=== PATIENT | female | born 2000 | race Caucasian/White ===

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

== ENCOUNTER 2020-08-27 11:23 | Emergency (ER) | payer OTHER ==
[2020-08-27] MEDS ORDERED: Ketorolac 30 MG/ML SDV IVPUSH ONE (11:38)
[2020-08-27] MEDS ORDERED: Ondansetron 4 MG/2 ML SDV IVPUSH ONE (11:38)
[2020-08-27] MEDS ORDERED: Sodium Chloride 0.9% 1,000 ML IV ONE ×3 (11:38→14:31)
[2020-08-27] MEDS ORDERED: Morphine 4 MG/ML Syringe IVPUSH ONE (11:40)
[2020-08-27 12:17] LABS: BLOOD UREA NITROGEN,BUN 2 mg/dL (7.0-18.0); CHLORIDE,CL 100 mmol/L (98-107); GLUCOSE RANDOM 131 mg/dL (74-106); LIPASE 1398 U/L (73-393); POTASSIUM,K 3.6 mmol/L (3.5-5.1); SODIUM,NA 138 mmol/L (136-145)
--- NOTE | 2020-08-27 13:05 | US ---
INDICATION: Right upper quadrant pain with elevated bilirubin and LFTs. TECHNIQUE: Ultrasound abdomen limited. Sonographic images of the right upper quadrant were obtained using heath-scale and color Doppler images. COMPARISON: None FINDINGS: Liver: Hepatomegaly at 20.5 centimeters with diffuse fatty infiltration. No masses. No intrahepatic biliary dilatation. Hepatopetal flow. Trace fluid adjacent to the liver. Gallbladder: Solitary gallstone normal wall thickness. No pericholecystic fluid. Common bile duct: 4.0 mm. Pancreas: Suboptimally visualized due to adjacent bowel gas. Right kidney: 10.2 cm. Normal echotexture and cortex. No masses, stones, or hydronephrosis. Vasculature: Proximal abdominal aorta and IVC are normal. IMPRESSION: Solitary gallstone in an otherwise normal appearing gallbladder. Normal common bile duct. Hepatomegaly at 20.5 centimeters with diffuse fatty infiltration. Trace fluid adjacent to the liver. Dictated by Surya Edmonds MD @ Aug 27 2020 1:04PM Signed by Dr. Surya Edmonds @ Aug 27 2020 1:04PM
--- NOTE | 2020-08-27 13:27 | CT ---
INDICATION: Right upper and right lower quadrant pain with elevated bilirubin TECHNIQUE: CT abdomen and pelvis acquired with IV contrast. 100 cc Isovue 370. COMPARISON: None FINDINGS: Lower chest: Unremarkable. Liver: Significant hepatic steatosis. Spleen: Mild splenomegaly 13.0 centimeters. Pancreas: Extensive peripancreatic fat stranding and fluid extending into the right side of the retroperitoneum and pelvis. Findings consistent with pancreatitis. Gallbladder and bile ducts: Unremarkable. Kidneys: Unremarkable. Adrenal glands: Unremarkable. GI tract: Unremarkable. Appendix is normal. Vascular structures: Unremarkable. Lymph nodes: Unremarkable. Miscellaneous: Unremarkable. No free air or significant free fluid. Pelvic Organs: Unremarkable. Bones: Unremarkable for age. IMPRESSION: Extensive peripancreatic fat stranding and fluid extending to the right-sided retroperitoneum and pelvis. Findings consistent with pancreatitis. Correlate with abnormal amylase and lipase. Significant hepatic steatosis. Mild splenomegaly at 13.0 centimeters. Please note that all CT scans at this facility use dose modulation, iterative reconstruction, and/or weight-based dosing when appropriate to reduce radiation dose to as low as reasonably achievable. Dictated by Surya Edmonds MD @ Aug 27 2020 1:14PM Signed by Dr. Surya Edmonds @ Aug 27 2020 1:25PM
--- NOTE | 2020-08-27 14:13 | EDM.PDOC ---
ED HPI GENERAL MEDICAL PROBLEM - General Chief Complaint: Abdominal Pain Stated Complaint: clininc referal Time Seen by Provider: 08/27/20 11:25 Source of Information: Reports: Patient History Limitations: Reports: No Limitations - History of Present Illness INITIAL COMMENTS - FREE TEXT/NARRATIVE: HISTORY AND PHYSICAL: History of present illness: Patient is a 20-year-old female who presents to the ED today with concern of right upper quadrant pain and nausea that has been ongoing for 2 days. Patient states that she has had a decrease in appetite and her "stomach feels like fire "if she tries to eat. Patient states that she initially went to the clinic and was told to come here after her "liver functions "were elevated. Patient denies any health history or any abdominal surgeries. Patient states that she does use alcohol socially but does not drink habitually. Patient states that she may have a "few drinks "on the weekends. Patient states her last menstrual cycle was 2 weeks ago. Patient states that she did have LASEK eye surgery a few weeks ago and does have some residual redness of her eyes. Patient denies fever, chills, chest pain, shortness of breath, or cough. Denies headache, neck stiff ness, change in vision, syncope, or near syncope. Denies vomiting, diarrhea, constipation, or dysuria. Has not noted any blood in urine or stool. Review of systems: As per history of present illness and below otherwise all systems reviewed and negative. Past medical history: As per history of present illness and as reviewed below otherwise noncontributor y. Surgical history: As per history of present illness and as reviewed below otherwise noncontributory. Social history: See social history for further information Family history: As per history of present illness and as reviewed below otherwise noncontributory. Physical exam: General: Patient is alert, oriented, and in no acute distress. Patient laying comfortably on exam table, tired appearing, tearful on exam. Vitally stable and reviewed by me. HEENT: Atraumatic, normocephalic, pupils equal and reactive bilaterally, negative for conjunctival pallor or scleral icterus, mild scleral injection of the right eye, mucous membranes moist, TMs normal bilaterally, throat clear, neck supple, nontender, trachea midline. No drooling or trismus noted. No meningeal signs. No hot potato voice noted. Lungs: Clear to auscultation, breath sounds equal bilaterally, chest nontender. Heart: S1S2, regular rate and rhythm without overt murmur Abdomen: Soft, nondistended, moderate-severe RUQ and RLQ abdominal pain. Negative for masses or hepatosplenomegaly. Negative for costovertebral tenderness. Pelvis: Stable nontender. Genitourinary: Deferred. Rectal: Deferred. Skin: Intact, warm, dry. No lesions or rashes noted. Extremities: Atraumatic, negative for cords or calf pain. Neurovascular unremarkable. Neuro: Awake, alert, oriented. Cranial nerves II through XII unremarkable. Cerebellum unremarkable. Motor and sensory unremarkable throughout. Exam nonfocal. Notes: On initial exam, patient is vitally stable, tired appearing, otherwise non toxic appearing. She does have significant RUQ/RLQ abdominal pain. I did receive a call from the clinic provider, Dr. Jack, who had done lab work and was concerned for obstructing stone. Dr. Jack had consulted surgery who recommended transfer for ERCP consideration and GI specialist availability. We will repeat lab work as we do not have the lab work from the clinic available, as well as perform an abdominal pelvic CT scan and right upper quadrant ultrasound. CBC mild derangements unremarkable. CMP shows an elevated bilirubin at 7.9, elevated AST of 159, ALT 77, alk phos of 224. Lipase was elevated at 1398. hCG is negative. RUQ US shows a solitary gallstone in an otherwise normal appearing gallbladder. Normal common bile duct. Hepatomegaly at 20.5 cm with diffuse fatty infiltration. Trace fluid adjacent to the liver. Abd/Pelvic CT w cont shows extensive peripancreatic fat stranding and fluid extending to the right sided retroperitoneum and pelvis. Findings consistent with pancreatitis. Significant hepatic steatosis. Mild splenomegaly at 13 cm. Upon reevaluation of patient, she is more comfortable following therapeutics given today in the ED. [facility] [place] is unable to perform ERCP I did call and speak to DELL [place] for consult for possible ERCP consideration and is agreeable to seeing/evaluating patient for possible ERCP consideration. I spoke to Dr. Aldana, hospitalist, and thoroughly discussed patient's case. He is accepting of transfer. He would like patient to receive a total of 3-4L of NS enroute to [facility]. EMS arranged. Voices understanding and is agreeable to plan of care. Denies any further questions or concerns at this time. Diagnostics: CBC, CMP, UA, lipase, urine hCG, right upper quadrant ultrasound, abdominal pelvic CT with contrast, COVID-19 Therapeutics: NS (2L bolus, then 1L rate 250mls/hr requested by Dr Aldana to be given during EMS transfer), Morphine, Toradol Impression: Acute abdominal pain, likely secondary to choledocholithiasis Acute pancreatitis Plan: Transfer to Dr. Aldana, hospitalist, at [facility] via EMS Definitive disposition and diagnosis as appropriate pending reevaluation and review of above. Right Upper Abdomen Pain Score (Numeric/FACES): 9 - Related Data Allergies Allergy/AdvReac Type Severity Reaction Status Date / Time No Known Allergies Allergy Verified 08/27/20 11:34 Home Meds: Home Meds Sertraline [Zoloft] 25 mg PO DAILY 08/27/20 [History] Past Medical History - Past Health History Medical/Surgical History: Denies Medical/Surgical History HEENT History: Reports: None Cardiovascular History: Reports: None Respiratory History: Reports: None Gastrointestinal History: Reports: None Genitourinary History: Reports: None PM HEAD COOK History: Reports: None Musculoskeletal History: Reports: None Neurological History: Reports: None Psychiatric History: Reports: None Endocrine/Metabolic History: Reports: None Hematologic History: Reports: None Dermatologic History: Reports: None - Infectious Disease History Infectious Disease History: Reports: None - Past Surgical History Female Surgical History: Reports: None Social & Family History - Family History Family Medical History: No Pertinent Family History - Tobacco Use Tobacco Use Status *Q: Never Tobacco User - Caffeine Use Caffeine Use: Reports: None - Recreational Drug Use Recreational Drug Use: No ED ROS GENERAL - Review of Systems Review Of Systems: Comprehensive ROS is negative, except as noted in HPI. ED EXAM, GENERAL - Physical Exam Exam: See Below (see dictation) Course - Vital Signs Last Recorded V/S: Last Vital Signs Temp 98.3 F 08/27/20 11:35 Pulse 84 08/27/20 14:37 Resp 16 08/27/20 14:37 BP 128/107 H 08/27/20 14:37 Pulse Ox 97 08/27/20 14:37 - Orders/Labs/Meds Orders: Active Orders 24 hr Category Date Time Status COVID-19/FLU A+B [MOLEC] Stat Lab 08/27/20 11:39 Ordered CULTURE URINE [RM] Stat Lab 08/27/20 11:37 Received Sodium Chloride 0.9% [Normal Saline] 1,000 ml Med 08/27/20 14:30 Active IV STAT Sodium Chloride 0.9% [Normal Saline] 1,000 ml Med 08/27/20 14:31 Active IV STAT Medication Orders Sodium Chloride (Normal Saline) 1,000 mls @ 250 mls/hr IV STAT ONE Stop: 08/27/20 18:29 Last Admin: 08/27/20 14:48 Dose: 999 mls/hr Documented by: ADRIANA Sodium Chloride (Normal Saline) 1,000 mls @ 250 mls/hr IV STAT ONE Stop: 08/27/20 18:30 Last Admin: 08/27/20 14:53 Dose: 250 mls/hr Documented by: ADRIANA Labs: Laboratory Tests 08/27/20 08/27/20 08/27/20 Range/Units 11:37 11:45 11:45 WBC 8.93 (4.0-11.0) K/uL RBC 3.24 L (4.30-5.90) M/uL Hgb 13.1 (12.0-16.0) g/dL Hct 38.6 (36.0-46.0) % MCV 119.1 H (80.0-98.0) fL MCH 40.4 H (27.0-32.0) pg MCHC 33.9 (31.0-37.0) g/dL RDW Std Deviation 75.8 H (28.0-62.0) fl RDW Coeff of Jolanta 17 H (11.0-15.0) % Plt Count 360 (150-400) K/uL MPV 10.00 (7.40-12.00) fL Neut % (Auto) 86.9 H (48.0-80.0) % Lymph % (Auto) 9.1 L (16.0-40.0) % Cobb % (Auto) 3.4 (0.0-15.0) % Eos % (Auto) 0.4 (0.0-7.0) % Baso % (Auto) 0.2 (0.0-1.5) % Neut # (Auto) 7.8 H (1.4-5.7) K/uL Lymph # (Auto) 0.8 (0.6-2.4) K/uL Cobb # (Auto) 0.3 (0.0-0.8) K/uL Eos # (Auto) 0.0 (0.0-0.7) K/uL Baso # (Auto) 0.0 (0.0-0.1) K/uL Nucleated RBC % 0.0 /100WBC Nucleated RBCs # 0 K/uL Sodium 138 (136-145) mmol/L Potassium 3.6 (3.5-5.1) mmol/L Chloride 100 (98-107) mmol/L Carbon Dioxide 27.0 (21.0-32.0) mmol/L BUN 2 L (7.0-18.0) mg/dL Creatinine 0.7 (0.6-1.0) mg/dL Est Cr Clr Drug Dosing 118.01 mL/min Estimated GFR (MDRD) > 60.0 ml/min Glucose 131 H (74-106) mg/dL Calcium 9.1 (8.5-10.1) mg/dL Total Bilirubin 7.9 H (0.2-1.0) mg/dL AST 159 H (15-37) IU/L ALT 77 H (14-63) IU/L Alkaline Phosphatase 224 H (46-116) U/L Total Protein 6.8 (6.4-8.2) g/dL Albumin 3.2 L (3.4-5.0) g/dL Globulin 3.6 (2.6-4.0) g/dL Albumin/Globulin Ratio 0.9 (0.9-1.6) Lipase 1398 H (73-393) U/L HCG, Qual (NEG) Urine Color ORANGE Urine Appearance CLEAR Urine pH 6.5 (5.0-8.0) Ur Specific [place] 1.010 (1.001-1.035) Urine Protein NEGATIVE (NEGATIVE) mg/dL Urine Glucose (UA) NEGATIVE (NEGATIVE) mg/dL Urine Ketones NEGATIVE (NEGATIVE) mg/dL Urine Occult Blood NEGATIVE (NEGATIVE) Urine Nitrite POSITIVE H (NEGATIVE) Urine Bilirubin LARGE H (NEGATIVE) Urine Ictotest POSITIVE Urine Urobilinogen 2.0 H (<2.0) EU/dL Ur Leukocyte Esterase NEGATIVE (NEGATIVE) Urine RBC 0-1 (0-2/HPF) Urine WBC 2-5 (0-5/HPF) Ur Epithelial Cells MANY (NONE-FEW) Urine Bacteria 2+ H (NEGATIVE) 08/27/20 Range/Units 11:45 WBC (4.0-11.0) K/uL RBC (4.30-5.90) M/uL Hgb (12.0-16.0) g/dL Hct (36.0-46.0) % MCV (80.0-98.0) fL MCH (27.0-32.0) pg MCHC (31.0-37.0) g/dL RDW Std Deviation (28.0-62.0) fl RDW Coeff of Jolanta (11.0-15.0) % Plt Count (150-400) K/uL MPV (7.40-12.00) fL Neut % (Auto) (48.0-80.0) % Lymph % (Auto) (16.0-40.0) % Cobb % (Auto) (0.0-15.0) % Eos % (Auto) (0.0-7.0) % Baso % (Auto) (0.0-1.5) % Neut # (Auto) (1.4-5.7) K/uL Lymph # (Auto) (0.6-2.4) K/uL Cobb # (Auto) (0.0-0.8) K/uL Eos # (Auto) (0.0-0.7) K/uL Baso # (Auto) (0.0-0.1) K/uL Nucleated RBC % /100WBC Nucleated RBCs # K/uL Sodium (136-145) mmol/L Potassium (3.5-5.1) mmol/L Chloride (98-107) mmol/L Carbon Dioxide (21.0-32.0) mmol/L BUN (7.0-18.0) mg/dL Creatinine (0.6-1.0) mg/dL Est Cr Clr Drug Dosing mL/min Estimated GFR (MDRD) ml/min Glucose (74-106) mg/dL Calcium (8.5-10.1) mg/dL Total Bilirubin (0.2-1.0) mg/dL AST (15-37) IU/L ALT (14-63) IU/L Alkaline Phosphatase (46-116) U/L Total Protein (6.4-8.2) g/dL Albumin (3.4-5.0) g/dL Globulin (2.6-4.0) g/dL Albumin/Globulin Ratio (0.9-1.6) Lipase (73-393) U/L HCG, Qual NEGATIVE (NEG) Urine Color Urine Appearance Urine pH (5.0-8.0) Ur Specific [place] (1.001-1.035) Urine Protein (NEGATIVE) mg/dL Urine Glucose (UA) (NEGATIVE) mg/dL Urine Ketones (NEGATIVE) mg/dL Urine Occult Blood (NEGATIVE) Urine Nitrite (NEGATIVE) Urine Bilirubin (NEGATIVE) Urine Ictotest Urine Urobilinogen (<2.0) EU/dL Ur Leukocyte Esterase (NEGATIVE) Urine RBC (0-2/HPF) Urine WBC (0-5/HPF) Ur Epithelial Cells (NONE-FEW) Urine Bacteria (NEGATIVE) Meds: Medications Generic Name Dose Route Start Last Admin Trade Name Freq PRN Reason Stop Dose Admin Sodium Chloride 1,000 mls @ 250 mls/hr 08/27/20 14:30 08/27/20 14:48 Normal Saline IV 08/27/20 18:29 999 mls/hr STAT ONE Administration Sodium Chloride 1,000 mls @ 250 mls/hr 08/27/20 14:31 08/27/20 14:53 Normal Saline IV 08/27/20 18:30 250 mls/hr STAT ONE Administration Discontinued Medications Generic Name Dose Route Start Last Admin Trade Name Freq PRN Reason Stop Dose Admin Sodium Chloride 1,000 mls @ 999 mls/hr 08/27/20 11:38 08/27/20 11:59 Normal Saline IV 08/27/20 12:38 999 mls/hr BOLUS ONE Administration Iopamidol 100 ml 08/27/20 15:14 08/27/20 15:15 Iopamidol 755 Mg/Ml 500 Ml Multipack Bottle IVPUSH 08/27/20 15:15 100 ml ONETIME STA Administration Ketorolac Tromethamine 30 mg 08/27/20 11:38 08/27/20 11:58 Ketorolac 30 Mg/Ml Sdv IVPUSH 08/27/20 11:39 30 mg ONETIME ONE Administration Morphine Sulfate 4 mg 08/27/20 11:40 08/27/20 11:59 Morphine 4 Mg/Ml Syringe IVPUSH 08/27/20 11:41 4 mg ONETIME ONE Administration Morphine Sulfate 2 mg 08/27/20 14:31 08/27/20 14:50 Morphine 2 Mg/Ml Syringe IVPUSH 08/27/20 14:32 2 mg ONETIME ONE Administration Ondansetron HCl 4 mg 08/27/20 11:38 08/27/20 11:58 Ondansetron 4 Mg/2 Ml Sdv IVPUSH 08/27/20 11:39 4 mg ONETIME ONE Administration Departure - Departure Time of Disposition: 14:54 Disposition: DC/[facility] to [facility] 02 Clinical Impression: Acute abdominal pain, Choledocholithiasis Acute pancreatitis Qualifiers: Pancreatitis type: biliary Acute pancreatitis complication: unspecified Qualified Code(s): K85.10 - Biliary acute pancreatitis without necrosis or infection - Discharge Information Referrals: Lourdes Jack DO [Primary Care Provider] - Forms: ED Department Discharge Sepsis Event Note (ED) - Evaluation Sepsis Screening Result: No Definite Risk - Focused Exam Vital Signs: Vital Signs Temp Pulse Resp BP Pulse Ox 08/27/20 14:37 84 16 128/107 H 97 08/27/20 13:08 80 18 153/63 H 97 08/27/20 11:35 98.3 F 112 H 20 147/97 H 97 - My Orders Last 24 Hours: My Active Orders 08/27/20 11:37 CULTURE URINE [RM] Stat 08/27/20 11:39 COVID-19/FLU A+B [MOLEC] Stat 08/27/20 14:30 Sodium Chloride 0.9% [Normal Saline] 1,000 ml IV STAT 08/27/20 14:31 Sodium Chloride 0.9% [Normal Saline] 1,000 ml IV STAT - Assessment/Plan Last 24 Hours: My Active Orders 08/27/20 11:37 CULTURE URINE [RM] Stat 08/27/20 11:39 COVID-19/FLU A+B [MOLEC] Stat 08/27/20 14:30 Sodium Chloride 0.9% [Normal Saline] 1,000 ml IV STAT 08/27/20 14:31 Sodium Chloride 0.9% [Normal Saline] 1,000 ml IV STAT
[2020-08-27] MEDS ORDERED: Morphine 2 MG/ML SYRINGE IVPUSH ONE (14:31)
[2020-08-27] MEDS ORDERED: Iopamidol 755 MG/ML 500 ML Multipack Bottle IVPUSH STA (15:14)
[2020-08-27 15:32] VITALS: BP 128/107; PULSE 84
== END 2020-08-27 15:31 ==
LOC: MW.ED 11:23
DX: K85.10 Biliary acute pancreatitis without necrosis or infection (principal); K80.50 Calculus of bile duct without cholangitis or cholecystitis without obstruction
CPT/HCPCS: 36415; 74177; 76705; 80053; 81001; 83690; 84703; 85025; 87086; 96374; 96375; 96376; 99285; J1885; J2270; J2405; J7030; Q9967; 99284

== ENCOUNTER 2021-12-27 12:13 | Emergency (ER) | payer OTHER ==
[2021-12-27] MEDS ORDERED: Sodium Chloride 0.9% 2.5 ML Syringe FLUSH PRN (12:25)
[2021-12-27] MEDS ORDERED: Sodium Chloride 0.9% 1,000 ML IV ONE (12:25)
[2021-12-27] MEDS ORDERED: Sodium Chloride 0.9% 10 ML Syringe FLUSH PRN (12:25)
[2021-12-27] MEDS ORDERED: Morphine 4 MG/ML VIAL IVPUSH ONE (13:30)
[2021-12-27] MEDS ORDERED: Ondansetron 4 MG/2 ML SDV IVPUSH ONE (13:30)
[2021-12-27 14:17] LABS: CARBON DIOXIDE,CO2 29.1 mmol/L (21.0-32.0); POTASSIUM,K 4.1 mmol/L (3.5-5.1)
[2021-12-27] MEDS ORDERED: cefTRIAXone 1 GM in Sodium Chloride 0.9% 50 ML IV ONE (14:37)
[2021-12-27 17:20] VITALS: BP 139/93; PULSE 88
== END 2021-12-27 16:10 | disposition home or self-care (01) ==
LOC: MW.ED 12:13
DX: K52.9 Noninfective gastroenteritis and colitis, unspecified (principal); N30.00 Acute cystitis without hematuria; Z20.822 Contact with and (suspected) exposure to COVID-19
CPT/HCPCS: 36415; 80053; 80307; 81001; 81025; 83690; 85025; 87086; 87088; 87186; 87635; 96361; 96365; 96375; 99284; J0696; J2270; J2405; J3490; J7030; U0002

== ENCOUNTER 2022-11-14 16:08 | Emergency (ER) | payer SELFPAY ==
[2022-11-14 16:57] LABS: BASOPHILS PERCENT AUTO 0.2 % (0.0-1.5); EOSINOPHILS ABSOLUTE AUTO 0.2 K/uL (0.0-0.7); EOSINOPHILS PERCENT AUTO 2.8 % (0.0-7.0); HEMATOCRIT 40.2 % (36.0-46.0); HEMOGLOBIN 14.1 g/dL (12.0-16.0); LYMPHOCYTES PERCENT AUTO 24.8 % (16.0-40.0); MEAN CORPUSCULAR HEMOGLOBIN 29.6 pg (27.0-32.0); MEAN CORPUSCULAR HGB CONC 35.1 g/dL (31.0-37.0); MEAN CORPUSCULAR VOLUME 84.3 fL (80.0-98.0); MONOCYTES ABSOLUTE AUTO 0.4 K/uL (0.0-0.8); MONOCYTES PERCENT AUTO 5.1 % (0.0-15.0); NEUTROPHILS ABSOLUTE AUTO 5.5 K/uL (1.4-5.7); NEUTROPHILS PERCENT AUTO 67.1 % (48.0-80.0); PLATELET COUNT,PLT 214 K/uL (150-400); RED BLOOD CELL COUNT 4.77 M/uL (4.30-5.90); WHITE BLOOD CELL COUNT,WBC 8.16 K/uL (4.0-11.0)
[2022-11-14 17:43] LABS: ALBUMIN 3.5 g/dL (3.4-5.0); BILIRUBIN TOTAL 0.3 mg/dL (0.2-1.0); CALCIUM 8.6 mg/dL (8.5-10.1); CARBON DIOXIDE,CO2 23.4 mmol/L (21.0-32.0); CREATININE 0.6 mg/dL (0.6-1.0); EST CRCL DRUG DOSING (CG) 130.1 mL/min; POTASSIUM,K 3.4 mmol/L (3.5-5.1); PROTEIN TOTAL,TP 7.1 g/dL (6.4-8.2)
[2022-11-14] MEDS ORDERED: Ondansetron 4 MG Tab.DIS PO ONE (18:27)
[2022-11-14 18:52] LABS: BILIRUBIN,URINE NEGATIVE (NEGATIVE); COLOR,URINE YELLOW; GLUCOSE,URINE NEGATIVE (NEGATIVE); KETONES,URINE TRACE mg/dL (NEGATIVE); LEUKOCYTE ESTERASE,URINE NEGATIVE (NEGATIVE); NITRITE,URINE NEGATIVE (NEGATIVE); OCCULT BLOOD,URINE LARGE (NEGATIVE); PH,URINE 6.5 (5.0-8.0); PROTEIN,URINE NEGATIVE (NEGATIVE); UROBILINOGEN,URINE 0.2 EU/dL (<2.0)
[2022-11-14 19:22] LABS: APPEARANCE,URINE HAZY
[2022-11-14 19:40] LABS: BACTERIA,URINE RARE (NEGATIVE); EPITHELIAL CELLS,URINE FEW (NONE-FEW); WBC,URINE 0-2 (0-5/HPF)
[2022-11-14 19:52] VITALS: BP 123/79; PULSE 92
== END 2022-11-14 19:50 | disposition home or self-care (01) ==
LOC: MW.ED 16:08
DX: O20.0 Threatened abortion (principal); Z3A.09 9 weeks gestation of pregnancy
CPT/HCPCS: 36415; 76815; 80053; 81001; 84702; 85025; 86900; 86901; 99284; A9270; 99283

== ENCOUNTER 2022-12-18 19:38 | Emergency (ER) | payer SELFPAY ==
[2022-12-18] MEDS ORDERED: Sodium Chloride 0.9% 1,000 ML IV STA ×2 (20:07→21:11)
[2022-12-18] MEDS ORDERED: Sodium Chloride 0.9% 10 ML Syringe FLUSH PRN (20:07)
[2022-12-18] MEDS ORDERED: Sodium Chloride 0.9% 2.5 ML Syringe FLUSH PRN (20:07)
[2022-12-18 20:20] LABS: BASOPHILS PERCENT AUTO 0.5 % (0.0-1.5); EOSINOPHILS PERCENT AUTO 0.4 % (0.0-7.0); HEMATOCRIT 42.7 % (36.0-46.0); LYMPHOCYTES ABSOLUTE AUTO 1.6 K/uL (0.6-2.4); LYMPHOCYTES PERCENT AUTO 21.9 % (16.0-40.0); MEAN CORPUSCULAR HEMOGLOBIN 29.1 pg (27.0-32.0); MEAN CORPUSCULAR HGB CONC 32.8 g/dL (31.0-37.0); MEAN CORPUSCULAR VOLUME 88.8 fL (80.0-98.0); MONOCYTES ABSOLUTE AUTO 0.5 K/uL (0.0-0.8); MONOCYTES PERCENT AUTO 6.9 % (0.0-15.0); NEUTROPHILS ABSOLUTE AUTO 5.2 K/uL (1.4-5.7); NEUTROPHILS PERCENT AUTO 70.3 % (48.0-80.0); NRBC ABSOLUTE 0 K/uL; PLATELET COUNT,PLT 234 K/uL (150-400); RED BLOOD CELL COUNT 4.81 M/uL (4.30-5.90); WHITE BLOOD CELL COUNT,WBC 7.41 K/uL (4.0-11.0)
[2022-12-18] MEDS ORDERED: Morphine 4 MG/ML Syringe IVPUSH STA ×2 (20:31→22:27)
[2022-12-18] MEDS ORDERED: Ondansetron 4 MG/2 ML SDV IVPUSH STA (20:31)
[2022-12-18 20:56] LABS: A/G RATIO 0.9 (0.9-1.6); ALBUMIN 3.5 g/dL (3.4-5.0); BILIRUBIN TOTAL 0.8 mg/dL (0.2-1.0); CARBON DIOXIDE,CO2 22.9 mmol/L (21.0-32.0); CREATININE 0.7 mg/dL (0.6-1.0); EST CRCL DRUG DOSING (CG) 111.51 mL/min; MAGNESIUM 1.8 mg/dL (1.8-2.4); POTASSIUM,K 3.4 mmol/L (3.5-5.1); PROTEIN TOTAL,TP 7.4 g/dL (6.4-8.2)
[2022-12-18] MEDS ORDERED: Potassium Chloride 20 MEQ Tab.ER PO STA (21:16)
[2022-12-18] MEDS ORDERED: Magnesium Sulfate/Water 2 GM in Premix Bag 1 BAG IV STA (21:16)
[2022-12-18 21:29] LABS: BILIRUBIN,URINE NEGATIVE (NEGATIVE); COLOR,URINE YELLOW; GLUCOSE,URINE NEGATIVE (NEGATIVE); KETONES,URINE 15 mg/dL (NEGATIVE); LEUKOCYTE ESTERASE,URINE NEGATIVE (NEGATIVE); NITRITE,URINE NEGATIVE (NEGATIVE); OCCULT BLOOD,URINE LARGE (NEGATIVE); PROTEIN,URINE NEGATIVE (NEGATIVE); UROBILINOGEN,URINE 0.2 EU/dL (<2.0)
[2022-12-18 21:33] LABS: APPEARANCE,URINE SLT CLOUDY
[2022-12-18 21:36] LABS: BACTERIA,URINE FEW (NEGATIVE); EPITHELIAL CELLS,URINE OCCASIONAL (NONE-FEW); WBC,URINE 0-1 (0-5/HPF)
[2022-12-18] MEDS ORDERED: Magnesium Oxide 400 MG Tab PO STA (21:36)
[2022-12-18] MEDS ORDERED: Iopamidol 755 MG/ML 500 ML Multipack Bottle IVPUSH ONE (22:33)
[2022-12-18] MEDS ORDERED: Prochlorperazine 10 MG/2 ML SDV IVPUSH STA (23:04)
[2022-12-19 00:03] VITALS: BP 133/93; PULSE 93
== END 2022-12-19 00:02 | disposition home or self-care (01) ==
LOC: MW.ED 19:38
DX: K80.20 Calculus of gallbladder without cholecystitis without obstruction (principal); K76.0 Fatty (change of) liver, not elsewhere classified; F10.10 Alcohol abuse, uncomplicated; R79.89 Other specified abnormal findings of blood chemistry; Y90.3 Blood alcohol level of 60-79 mg/100 ml
CPT/HCPCS: 36415; 74177; 80053; 80307; 81001; 83690; 83735; 84702; 85025; 93005; 96361; 96374; 96375; 96376; 99285; A9270; J0780; J2270; J2405; J3490; J7030; Q9967; 93010; 99284

== ENCOUNTER 2022-12-31 07:35 | Inpatient (IN) | payer SELFPAY ==
[2022-12-31] MEDS ORDERED: Sodium Chloride 0.9% 2.5 ML Syringe FLUSH PRN ×2 (08:15→13:43)
[2022-12-31] MEDS ORDERED: Sodium Chloride 0.9% 1,000 ML IV ONE ×2 (08:15→08:45)
[2022-12-31] MEDS ORDERED: Sodium Chloride 0.9% 10 ML Syringe FLUSH PRN ×2 (08:15→13:43)
[2022-12-31] MEDS ORDERED: Ondansetron 4 MG/2 ML SDV IVPUSH ONE ×2 (08:15→10:50)
[2022-12-31 08:24] LABS: BASOPHILS ABSOLUTE AUTO 0.1 K/uL (0.0-0.1); BASOPHILS PERCENT AUTO 0.4 % (0.0-1.5); EOSINOPHILS PERCENT AUTO 0.1 % (0.0-7.0); HEMATOCRIT 46.9 % (36.0-46.0); HEMOGLOBIN 15.9 g/dL (12.0-16.0); LYMPHOCYTES ABSOLUTE AUTO 0.9 K/uL (0.6-2.4); LYMPHOCYTES PERCENT AUTO 7.8 % (16.0-40.0); MEAN CORPUSCULAR HEMOGLOBIN 30.3 pg (27.0-32.0); MEAN CORPUSCULAR HGB CONC 33.9 g/dL (31.0-37.0); MEAN CORPUSCULAR VOLUME 89.5 fL (80.0-98.0); MONOCYTES ABSOLUTE AUTO 0.6 K/uL (0.0-0.8); MONOCYTES PERCENT AUTO 4.7 % (0.0-15.0); NEUTROPHILS ABSOLUTE AUTO 10.3 K/uL (1.4-5.7); NRBC ABSOLUTE 0 K/uL; PLATELET COUNT,PLT 295 K/uL (150-400); RED BLOOD CELL COUNT 5.24 M/uL (4.30-5.90); WHITE BLOOD CELL COUNT,WBC 11.88 K/uL (4.0-11.0)
[2022-12-31 08:35] LABS: ALBUMIN 3.8 g/dL (3.4-5.0); BILIRUBIN TOTAL 0.8 mg/dL (0.2-1.0); CALCIUM 8.8 mg/dL (8.5-10.1); CARBON DIOXIDE,CO2 23.9 mmol/L (21.0-32.0); CREATININE 0.7 mg/dL (0.6-1.0); EST CRCL DRUG DOSING (CG) 111.51 mL/min; POTASSIUM,K 3.5 mmol/L (3.5-5.1); PROTEIN TOTAL,TP 7.6 g/dL (6.4-8.2)
[2022-12-31] MEDS ORDERED: Morphine 4 MG/ML Syringe IVPUSH ONE (08:44)
[2022-12-31] MEDS ORDERED: Naloxone 0.4 MG/ML SDV IVPUSH PRN ×2 (08:44→13:42)
[2022-12-31] MEDS ORDERED: Famotidine 20 MG/2 ML SDV IVPUSH ONE (08:44)
[2022-12-31] MEDS ORDERED: Iopamidol 755 MG/ML 500 ML Multipack Bottle IVPUSH STA (10:47)
[2022-12-31] MEDS: Morphine 4 MG/ML Syringe IVPUSH PRN ×2 (11:04→13:13)
[2022-12-31] MEDS ORDERED: Lactated Ringers 1,000 ML IV ONE (13:43)
[2022-12-31] MEDS: HYDROmorphone 1 MG/ML Syringe IVPUSH PRN ×4 (14:51→21:32)
[2022-12-31] MEDS: Pantoprazole 40 MG in Sodium Chloride 0.9% 10 ML IVPUSH SCH (14:52)
[2022-12-31] MEDS: Enoxaparin 40 MG/0.4 ML Syringe SUBCUT SCH (14:59)
[2022-12-31] MEDS: Ondansetron 4 MG/2 ML SDV IVPUSH PRN ×2 (15:28→19:36)
[2022-12-31] MEDS: Lactated Ringers 1,000 ML IV SCH ×5 (15:50→23:43)
[2023-01-01] MEDS: HYDROmorphone 1 MG/ML Syringe IVPUSH PRN ×9 (00:07→22:41)
[2023-01-01] MEDS: Lactated Ringers 1,000 ML IV SCH ×7 (02:40→22:40)
[2023-01-01] MEDS: Ondansetron 4 MG/2 ML SDV IVPUSH PRN ×2 (02:42→08:17)
[2023-01-01 05:57] LABS: BASOPHILS ABSOLUTE AUTO 0.1 K/uL (0.0-0.1); BASOPHILS PERCENT AUTO 0.5 % (0.0-1.5); EOSINOPHILS ABSOLUTE AUTO 0.1 K/uL (0.0-0.7); EOSINOPHILS PERCENT AUTO 1.4 % (0.0-7.0); HEMATOCRIT 43.2 % (36.0-46.0); HEMOGLOBIN 13.9 g/dL (12.0-16.0); LYMPHOCYTES ABSOLUTE AUTO 0.9 K/uL (0.6-2.4); LYMPHOCYTES PERCENT AUTO 8.9 % (16.0-40.0); MEAN CORPUSCULAR HEMOGLOBIN 29.8 pg (27.0-32.0); MEAN CORPUSCULAR HGB CONC 32.2 g/dL (31.0-37.0); MEAN CORPUSCULAR VOLUME 92.7 fL (80.0-98.0); MONOCYTES ABSOLUTE AUTO 0.5 K/uL (0.0-0.8); MONOCYTES PERCENT AUTO 4.9 % (0.0-15.0); NEUTROPHILS ABSOLUTE AUTO 8.4 K/uL (1.4-5.7); NEUTROPHILS PERCENT AUTO 84.3 % (48.0-80.0); NRBC ABSOLUTE 0 K/uL; PLATELET COUNT,PLT 185 K/uL (150-400); RED BLOOD CELL COUNT 4.66 M/uL (4.30-5.90); WHITE BLOOD CELL COUNT,WBC 9.91 K/uL (4.0-11.0)
[2023-01-01 06:52] LABS: A/G RATIO 0.8 (0.9-1.6); ALBUMIN 2.3 g/dL (3.4-5.0); BILIRUBIN TOTAL 1.2 mg/dL (0.2-1.0); CALCIUM 7.5 mg/dL (8.5-10.1); CARBON DIOXIDE,CO2 27.2 mmol/L (21.0-32.0); CREATININE 0.7 mg/dL (0.6-1.0); EST CRCL DRUG DOSING (CG) 111.51 mL/min; MAGNESIUM 1.3 mg/dL (1.8-2.4); POTASSIUM,K 3.9 mmol/L (3.5-5.1); PROTEIN TOTAL,TP 5.3 g/dL (6.4-8.2)
[2023-01-01] MEDS ORDERED: Magnesium Sulfate/Water 4 GM in Premix Bag 1 BAG IV ONE (07:52)
[2023-01-01] MEDS: Ketorolac 30 MG/ML SDV IVPUSH PRN (11:50)
[2023-01-01] MEDS: Enoxaparin 40 MG/0.4 ML Syringe SUBCUT SCH (13:36)
[2023-01-01] MEDS: Pantoprazole 40 MG in Sodium Chloride 0.9% 10 ML IVPUSH SCH (13:36)
[2023-01-01] MEDS ORDERED: Lactated Ringers 1,000 ML IV SCH (14:00)
[2023-01-02] MEDS: HYDROmorphone 1 MG/ML Syringe IVPUSH PRN ×7 (03:22→23:08)
[2023-01-02] MEDS: Lactated Ringers 1,000 ML IV SCH ×6 (03:23→18:28)
[2023-01-02 05:51] LABS: BASOPHILS PERCENT AUTO 0.3 % (0.0-1.5); EOSINOPHILS ABSOLUTE AUTO 0.3 K/uL (0.0-0.7); EOSINOPHILS PERCENT AUTO 3.9 % (0.0-7.0); HEMATOCRIT 38.6 % (36.0-46.0); HEMOGLOBIN 12.3 g/dL (12.0-16.0); LYMPHOCYTES ABSOLUTE AUTO 0.8 K/uL (0.6-2.4); MEAN CORPUSCULAR HEMOGLOBIN 29.8 pg (27.0-32.0); MEAN CORPUSCULAR HGB CONC 31.9 g/dL (31.0-37.0); MEAN CORPUSCULAR VOLUME 93.5 fL (80.0-98.0); MONOCYTES ABSOLUTE AUTO 0.4 K/uL (0.0-0.8); MONOCYTES PERCENT AUTO 5.1 % (0.0-15.0); NEUTROPHILS ABSOLUTE AUTO 6.1 K/uL (1.4-5.7); NEUTROPHILS PERCENT AUTO 79.7 % (48.0-80.0); NRBC ABSOLUTE 0 K/uL; PLATELET COUNT,PLT 135 K/uL (150-400); RED BLOOD CELL COUNT 4.13 M/uL (4.30-5.90); WHITE BLOOD CELL COUNT,WBC 7.66 K/uL (4.0-11.0)
[2023-01-02 06:13] LABS: A/G RATIO 0.7 (0.9-1.6); BILIRUBIN TOTAL 1.2 mg/dL (0.2-1.0); CALCIUM 7.6 mg/dL (8.5-10.1); EST CRCL DRUG DOSING (CG) 130.1 mL/min; POTASSIUM,K 3.5 mmol/L (3.5-5.1); PROTEIN TOTAL,TP 4.9 g/dL (6.4-8.2)
[2023-01-02 06:32] LABS: CARBON DIOXIDE,CO2 29.3 mmol/L (21.0-32.0); CREATININE 0.6 mg/dL (0.6-1.0); MAGNESIUM 1.6 mg/dL (1.8-2.4)
[2023-01-02] MEDS ORDERED: Magnesium Sulfate/Water 2 GM/50 ML Premix Bag IV ONE (12:11)
[2023-01-02] MEDS ORDERED: Magnesium Sulfate/Water 2 GM in Premix Bag 1 BAG IV ONE (12:30)
[2023-01-02] MEDS: Phosphorus #1 250 MG Tab PO SCH ×3 (13:20→23:10)
[2023-01-02] MEDS: Pantoprazole 40 MG in Sodium Chloride 0.9% 10 ML IVPUSH SCH (13:20)
[2023-01-02] MEDS: Enoxaparin 40 MG/0.4 ML Syringe SUBCUT SCH (13:38)
[2023-01-03] MEDS: HYDROmorphone 1 MG/ML Syringe IVPUSH PRN ×6 (01:50→19:40)
[2023-01-03] MEDS: Lactated Ringers 1,000 ML IV SCH ×8 (01:54→19:40)
[2023-01-03] MEDS: Phosphorus #1 250 MG Tab PO SCH ×3 (06:00→18:16)
[2023-01-03 07:09] LABS: A/G RATIO 0.6 (0.9-1.6); ALBUMIN 1.9 g/dL (3.4-5.0); BILIRUBIN TOTAL 1.1 mg/dL (0.2-1.0); CARBON DIOXIDE,CO2 28.8 mmol/L (21.0-32.0); CREATININE 0.4 mg/dL (0.6-1.0); EST CRCL DRUG DOSING (CG) 195.15 mL/min; MAGNESIUM 1.6 mg/dL (1.8-2.4); PHOSPHORUS 2.9 mg/dL (2.6-4.7); POTASSIUM,K 3.6 mmol/L (3.5-5.1); PROTEIN TOTAL,TP 5.2 g/dL (6.4-8.2)
[2023-01-03] MEDS ORDERED: Magnesium Sulfate/Water 2 GM/50 ML Premix Bag IV ONE (10:43)
[2023-01-03] MEDS ORDERED: Magnesium Sulfate/Water 2 GM in Premix Bag 1 BAG IV ONE (11:00)
[2023-01-03] MEDS: Pantoprazole 40 MG in Sodium Chloride 0.9% 10 ML IVPUSH SCH (14:01)
[2023-01-03] MEDS: Enoxaparin 40 MG/0.4 ML Syringe SUBCUT SCH (14:08)
[2023-01-03] MEDS: Ketorolac 30 MG/ML SDV IVPUSH PRN (18:16)
[2023-01-04] MEDS: Lactated Ringers 1,000 ML IV SCH ×9 (00:46→21:28)
[2023-01-04] MEDS: HYDROmorphone 1 MG/ML Syringe IVPUSH PRN ×5 (00:47→21:26)
[2023-01-04] MEDS: Ketorolac 30 MG/ML SDV IVPUSH PRN (05:53)
[2023-01-04 06:18] LABS: BASOPHILS PERCENT AUTO 0.2 % (0.0-1.5); EOSINOPHILS ABSOLUTE AUTO 0.2 K/uL (0.0-0.7); EOSINOPHILS PERCENT AUTO 3.5 % (0.0-7.0); HEMATOCRIT 36.1 % (36.0-46.0); HEMOGLOBIN 11.5 g/dL (12.0-16.0); LYMPHOCYTES ABSOLUTE AUTO 0.8 K/uL (0.6-2.4); LYMPHOCYTES PERCENT AUTO 17.1 % (16.0-40.0); MEAN CORPUSCULAR HEMOGLOBIN 29.5 pg (27.0-32.0); MEAN CORPUSCULAR HGB CONC 31.9 g/dL (31.0-37.0); MEAN CORPUSCULAR VOLUME 92.6 fL (80.0-98.0); MONOCYTES ABSOLUTE AUTO 0.4 K/uL (0.0-0.8); MONOCYTES PERCENT AUTO 8.7 % (0.0-15.0); NEUTROPHILS ABSOLUTE AUTO 3.3 K/uL (1.4-5.7); NEUTROPHILS PERCENT AUTO 70.5 % (48.0-80.0); NRBC ABSOLUTE 0 K/uL; PLATELET COUNT,PLT 156 K/uL (150-400); WHITE BLOOD CELL COUNT,WBC 4.62 K/uL (4.0-11.0)
[2023-01-04 07:09] LABS: A/G RATIO 0.6 (0.9-1.6); ALANINE AMINOTRANSFERASE,ALT 11 IU/L (14-63); ALBUMIN 1.9 g/dL (3.4-5.0); ALKALINE PHOSPHATASE 74 U/L (46-116); ASPARTATE AMNIOTRANSFERASE,AST 15 IU/L (15-37); CALCIUM 7.9 mg/dL (8.5-10.1); CARBON DIOXIDE,CO2 27.7 mmol/L (21.0-32.0); CHLORIDE,CL 103 mmol/L (98-107); CREATININE 0.4 mg/dL (0.6-1.0); EST CRCL DRUG DOSING (CG) 195.15 mL/min; GLUCOSE RANDOM 88 mg/dL (74-106); MAGNESIUM 1.6 mg/dL (1.8-2.4); POTASSIUM,K 3.2 mmol/L (3.5-5.1); SODIUM,NA 138 mmol/L (136-145)
[2023-01-04 07:18] LABS: BLOOD UREA NITROGEN,BUN < 1 mg/dL (7.0-18.0); ESTIMATED GFR 142 mL/min (>60)
[2023-01-04] MEDS ORDERED: Potassium Chloride 20 MEQ Tab.ER PO ONE ×2 (07:59→09:30)
[2023-01-04] MEDS ORDERED: Magnesium Sulfate/Water 2 GM in Premix Bag 1 BAG IV ONE (08:00)
[2023-01-04] MEDS: Pantoprazole 40 MG in Sodium Chloride 0.9% 10 ML IVPUSH SCH (13:49)
[2023-01-04] MEDS: Enoxaparin 40 MG/0.4 ML Syringe SUBCUT SCH (13:51)
[2023-01-05] MEDS: HYDROmorphone 1 MG/ML Syringe IVPUSH PRN ×3 (00:30→08:24)
[2023-01-05] MEDS: Lactated Ringers 1,000 ML IV SCH ×3 (02:33→07:34)
[2023-01-05 06:50] LABS: A/G RATIO 0.5 (0.9-1.6); ALBUMIN 1.9 g/dL (3.4-5.0); BILIRUBIN TOTAL 0.6 mg/dL (0.2-1.0); CARBON DIOXIDE,CO2 29.1 mmol/L (21.0-32.0); CREATININE 0.5 mg/dL (0.6-1.0); EST CRCL DRUG DOSING (CG) 156.12 mL/min; MAGNESIUM 1.5 mg/dL (1.8-2.4); POTASSIUM,K 3.5 mmol/L (3.5-5.1); PROTEIN TOTAL,TP 5.4 g/dL (6.4-8.2)
[2023-01-05] MEDS ORDERED: Scopolamine 1.5 MG Transdermal Patch TOP ONE (08:00)
[2023-01-05] MEDS ORDERED: Metoclopramide 10 MG/2 ML SDV IVPUSH PRN (08:51)
[2023-01-05] MEDS ORDERED: droPERidol 5 MG/2 ML SDV IVPUSH PRN (08:51)
[2023-01-05] MEDS ORDERED: fentaNYL 50 MCG/ML SDV IVPUSH PRN (08:51)
[2023-01-05] MEDS ORDERED: Albuterol 0.083% 2.5 MG/3 ML Neb Soln NEB PRN (08:51)
[2023-01-05] MEDS ORDERED: Naloxone 0.4 MG/ML SDV IVPUSH PRN (08:51)
[2023-01-05] MEDS ORDERED: Ondansetron 4 MG/2 ML SDV IVPUSH PRN (08:51)
[2023-01-05] MEDS ORDERED: Morphine 2 MG/ML SYRINGE IVPUSH PRN (08:51)
[2023-01-05] MEDS ORDERED: HYDROmorphone 1 MG/ML Syringe IVPUSH PRN (08:51)
[2023-01-05] MEDS ORDERED: fentaNYL 100 MCG/2 ML SDV ONE ×2 (11:03→12:03)
[2023-01-05] MEDS ORDERED: Rocuronium Bromide 50 MG/5 ML Syringe ONE (11:03)
[2023-01-05] MEDS ORDERED: Ondansetron 4 MG/2 ML SDV ONE (11:03)
[2023-01-05] MEDS ORDERED: Sugammadex Sodium 200 MG/2 ML VIAL ONE ×3 (11:03→12:52)
[2023-01-05] MEDS ORDERED: propofoL 100 ML ONE (11:03)
[2023-01-05] MEDS ORDERED: Morphine 10 MG/ML SDV ONE (11:03)
[2023-01-05] MEDS ORDERED: Dexmedetomidine 200 MCG/2 ML SDV ONE (11:04)
[2023-01-05] MEDS ORDERED: Lidocaine 2% 11 ML Jelly Filled Syringe ONE (11:04)
[2023-01-05] MEDS ORDERED: Metoclopramide 10 MG/2 ML SDV ONE (11:04)
[2023-01-05] MEDS ORDERED: Lidocaine 2% 100 MG/5 ML Syringe ONE (11:04)
[2023-01-05] MEDS ORDERED: Magnesium Sulfate (4.06 MEQ/ML) 5 GM/10 ML SDV ONE (11:04)
[2023-01-05] MEDS ORDERED: Indocyanine Green 25 MG SDV ONE (11:10)
[2023-01-05] MEDS ORDERED: Ropivacaine 0.5% 5 MG/ML 30 ML SDV ONE (11:15)
[2023-01-05] MEDS ORDERED: Midazolam 1 MG/ML 2 ML SDV ONE (11:22)
[2023-01-05] MEDS ORDERED: Bupivacaine 0.5% 30 ML SDV ONE (11:24)
[2023-01-05] MEDS ORDERED: Esmolol 100 MG/10 ML SDV ONE ×3 (11:37→12:24)
[2023-01-05] MEDS ORDERED: ceFAZolin 1 GM Vial ONE ×2 (11:39)
[2023-01-05] MEDS ORDERED: Ketorolac 30 MG/ML SDV ONE (12:18)
[2023-01-05] MEDS: Acetaminophen/oxyCODONE 325-5 MG Tab PO PRN ×2 (14:22→18:08)
[2023-01-05] MEDS: Pantoprazole 40 MG in Sodium Chloride 0.9% 10 ML IVPUSH SCH (14:24)
[2023-01-05] MEDS: Enoxaparin 40 MG/0.4 ML Syringe SUBCUT SCH (16:43)
[2023-01-06] MEDS: Acetaminophen/oxyCODONE 325-5 MG Tab PO PRN ×3 (03:23→11:35)
[2023-01-06 05:56] LABS: BASOPHILS PERCENT AUTO 0.4 % (0.0-1.5); EOSINOPHILS PERCENT AUTO 0.2 % (0.0-7.0); HEMATOCRIT 36.2 % (36.0-46.0); HEMOGLOBIN 11.6 g/dL (12.0-16.0); LYMPHOCYTES PERCENT AUTO 19.6 % (16.0-40.0); MEAN CORPUSCULAR HEMOGLOBIN 29.8 pg (27.0-32.0); MEAN CORPUSCULAR VOLUME 93.1 fL (80.0-98.0); MONOCYTES ABSOLUTE AUTO 0.6 K/uL (0.0-0.8); MONOCYTES PERCENT AUTO 11.6 % (0.0-15.0); NEUTROPHILS ABSOLUTE AUTO 3.3 K/uL (1.4-5.7); NEUTROPHILS PERCENT AUTO 68.2 % (48.0-80.0); NRBC ABSOLUTE 0 K/uL; PLATELET COUNT,PLT 224 K/uL (150-400); RED BLOOD CELL COUNT 3.89 M/uL (4.30-5.90)
[2023-01-06 06:27] LABS: A/G RATIO 0.6 (0.9-1.6); BILIRUBIN TOTAL 0.3 mg/dL (0.2-1.0); CALCIUM 8.3 mg/dL (8.5-10.1); CARBON DIOXIDE,CO2 27.3 mmol/L (21.0-32.0); CREATININE 0.5 mg/dL (0.6-1.0); EST CRCL DRUG DOSING (CG) 156.12 mL/min; POTASSIUM,K 3.7 mmol/L (3.5-5.1); PROTEIN TOTAL,TP 5.3 g/dL (6.4-8.2)
[2023-01-06] MEDS: Lactated Ringers 1,000 ML IV SCH (07:25)
[2023-01-06 11:40] VITALS: BP 140/89; PULSE 83
== END 2023-01-06 12:00 | disposition home or self-care (01) | DRG 417 ==
LOC: MW.ED 07:35 → MW.MS 13:40
PROVIDERS: ADMIT Family Medicine; ATTEND Family Medicine
PROC: 0FT44ZZ Resection of Gallbladder, Percutaneous Endoscopic Approach (ICD-10-PCS; principal; 2023-01-05)
DX: K80.20 Calculus of gallbladder without cholecystitis without obstruction (principal); K85.10 Biliary acute pancreatitis without necrosis or infection; K76.0 Fatty (change of) liver, not elsewhere classified; E66.9 Obesity, unspecified; F17.210 Nicotine dependence, cigarettes, uncomplicated; F90.9 Attention-deficit hyperactivity disorder, unspecified type; F41.9 Anxiety disorder, unspecified; F32.A Depression, unspecified; F10.10 Alcohol abuse, uncomplicated; K74.60 Unspecified cirrhosis of liver; Z68.30 Body mass index [BMI] 30.0-30.9, adult; Z79.899 Other long term (current) drug therapy; Z98.890 Other specified postprocedural states
CPT/HCPCS: 00790; 36415; 64488; 74177; 74177-26; 74181; 74181-26; 76705; 76705-26; 80053; 80061; 81025; 82947; 83690; 83735; 84100; 84703; 85025; 93005; 93010; 96361; 96374; 96375; 96376; 99285; 99285-25; A9270-GY; C9113; J0131; J0690; J1170; J1650; J1885; J2250; J2270; J2405; J2704; J2765; J2795; J3010; J3475; J3490; J7030; J7120; Q9967

== ENCOUNTER 2024-04-10 17:25 | Emergency (ER) | payer BC ==
[2024-04-10 17:49] VITALS: BP 132/94; PULSE 91
== END 2024-04-10 18:33 | disposition left against medical advice (07) ==
LOC: MW.ED 17:25
DX: Z53.21 Procedure and treatment not carried out due to patient leaving prior to being seen by health care provider (principal)

== ENCOUNTER 2024-04-11 14:05 | Emergency (ER) | payer BC ==
[2024-04-11 14:35] LABS: BASOPHILS ABSOLUTE AUTO 0.06 K/uL (0.00-0.20); BASOPHILS PERCENT AUTO 0.5 % (0.0-1.0); EOSINOPHILS ABSOLUTE AUTO 0.03 K/uL (0.00-0.45); EOSINOPHILS PERCENT AUTO 0.2 % (0.0-6.0); HEMATOCRIT 41.1 % (37.0-47.0); HEMOGLOBIN 14.2 g/dL (12.0-16.0); IMMATURE GRAN ABSOLUTE AUTO 0.02 K/uL (0.00-0.05); IMMATURE GRAN PERCENT AUTO 0.2 % (0.0-0.4); LYMPHOCYTES ABSOLUTE AUTO 3.07 K/uL (1.00-4.80); MEAN CORPUSCULAR HEMOGLOBIN 30.1 pg (28.0-32.0); MEAN CORPUSCULAR HGB CONC 34.5 g/dL (32.0-36.0); MEAN CORPUSCULAR VOLUME 87.1 fL (83.0-99.0); MEAN PLATELET VOLUME 9.8 fL (9.4-12.3); MONOCYTES ABSOLUTE AUTO 0.31 K/uL (0.00-0.80); MONOCYTES PERCENT AUTO 2.5 % (0.0-8.0); NEUTROPHILS ABSOLUTE AUTO 8.79 K/uL (1.80-7.70); NEUTROPHILS PERCENT AUTO 71.6 % (41.0-71.0); PLATELET COUNT,PLT 395 K/uL (150-400); RED BLOOD CELL COUNT 4.72 M/uL (4.10-5.30); WHITE BLOOD CELL COUNT,WBC 12.28 K/uL (3.9-11.3)
[2024-04-11 14:48] LABS: APPEARANCE,URINE CLEAR; BILIRUBIN,URINE NEGATIVE (NEGATIVE); COLOR,URINE YELLOW; GLUCOSE,URINE NEGATIVE (NEGATIVE); KETONES,URINE NEGATIVE (NEGATIVE); LEUKOCYTE ESTERASE,URINE TRACE (NEGATIVE); NITRITE,URINE NEGATIVE (NEGATIVE); OCCULT BLOOD,URINE NEGATIVE (NEGATIVE); PROTEIN,URINE NEGATIVE (NEGATIVE); UROBILINOGEN,URINE 0.2 EU/dL (<2.0)
[2024-04-11 14:53] VITALS: BP 142/90; PULSE 107
[2024-04-11 14:56] LABS: BACTERIA,URINE RARE (NEGATIVE); EPITHELIAL CELLS,URINE RARE (NONE-FEW); RBC,URINE 0-1 (0-2/HPF); WBC,URINE 0-3 (0-5/HPF)
[2024-04-11 14:58] LABS: AMPHETAMINES SCREEN, URINE NEGATIVE (CUTOFF=500); BARBITURATE SCREEN,URINE NEGATIVE (CUTOFF=200); BENZODIAZEPINES SCREEN,URINE NEGATIVE (CUTOFF=150); BUPRENORPHINE SCREEN,URINE NEGATIVE (CUTOFF=10); METHADONE SCREEN, URINE NEGATIVE (CUTOFF=200); METHAMPHETAMINES SCREEN, URINE NEGATIVE (CUTOFF=500); OXYCODONE SCREEN,URINE NEGATIVE (CUT0FF=100); PCP SCREEN,URINE NEGATIVE (CUTOFF=25); THC SCREEN,URINE 20 NG/ML PRESUMPTIVE POSITIVE (CUTOFF=50)
[2024-04-11 16:27] LABS: A/G RATIO 1.1 (0.9-1.6); ACETAMINOPHEN <2.0 ug/mL; ALANINE AMINOTRANSFERASE,ALT 66 IU/L (14-63); ALBUMIN 4.2 g/dL (3.4-5.0); ALKALINE PHOSPHATASE 150 U/L (46-116); ASPARTATE AMNIOTRANSFERASE,AST 53 IU/L (15-37); BILIRUBIN TOTAL 0.5 mg/dL (0.2-1.0); BLOOD UREA NITROGEN,BUN 3 mg/dL (7.0-18.0); CALCIUM 9.2 mg/dL (8.5-10.1); CARBON DIOXIDE,CO2 24.9 mmol/L (21.0-32.0); CHLORIDE,CL 103 mmol/L (98-107); CREATININE 0.5 mg/dL (0.6-1.0); EST CRCL DRUG DOSING (CG) 154.77 mL/min; GLUCOSE RANDOM 85 mg/dL (74-106); MAGNESIUM 1.8 mg/dL (1.8-2.4); POTASSIUM,K 3.2 mmol/L (3.5-5.1); PROTEIN TOTAL,TP 7.9 g/dL (6.4-8.2); SALICYLATE 3.8 mg/dL (0.0-20.0); SODIUM,NA 144 mmol/L (136-145); TSH ULTRASENSITIVE 1.71 uIU/mL (0.36-3.74)
[2024-04-11 16:29] LABS: ESTIMATED GFR 133 mL/min (>60); ETHANOL BLOOD MEDICAL 423 mg/dL
[2024-04-11] MEDS: Potassium Chloride 20 MEQ Tab.ER PO ONE (17:05)
[2024-04-11] MEDS: Acetaminophen 500 MG Tab PO ONE (17:05)
== END 2024-04-11 17:07 | disposition home or self-care (01) ==
LOC: MW.ED 14:05
DX: F10.10 Alcohol abuse, uncomplicated (principal); E87.6 Hypokalemia; R45.89 Other symptoms and signs involving emotional state; E66.9 Obesity, unspecified; Z75.8 Other problems related to medical facilities and other health care; Y90.8 Blood alcohol level of 240 mg/100 ml or more; Z68.25 Body mass index [BMI] 25.0-25.9, adult
CPT/HCPCS: 36415; 80053; 80143; 80179; 80305; 80307; 81001; 81025; 83735; 84443; 85025; 87086; 93005; 99285; A9270; 93010